=== PATIENT | female | born 1960 | race Caucasian/White ===

== ENCOUNTER 2016-05-11 23:13 | Inpatient (IN) | payer OTHER ==
[~2016-05-11] VITALS: Ht 144.8 cm; Wt 57.0 kg
[~2016-05-11 23:13] MED LIST: ATOR40TA68 PO; MTF1000T PO
[2016-05-11 23:20] VITALS: Ht 144.8 cm; Wt 57.0 kg
[2016-05-12] MEDS ORDERED: ACETAMINOPHEN 325 MG TAB PO STA (00:50)
[2016-05-12] MEDS ORDERED: SODIUM CHLORIDE 0.9% 1L BAG IV* STA (00:50)
--- NOTE | 2016-05-12 01:05 | ERD ---
ER Documentation Chief Complaint Date/Time DATE: 05/12/16 TIME: 01:04 Chief Complaint fever and body aches since 1700 today. took ibuprofen at 2100 HPI This is a 56-year-old female presents to the ER with a fever, chills, body aches that started today. Patient also has urinary frequency and dysuria. Patient denies any abdominal pain she denies any cough or cold symptoms. She denies any nausea vomiting or diarrhea. Patient denies any flank pain. Patient has a past medical history of diabetes. ROS 12 point review of systems was done, all negative except per HPI. Medications Home Meds Active Scripts Ondansetron Hcl* (Zofran*) 4 Mg Tablet, 4 MG PO Q6H for NAUSEA AND/OR VOMITING, #30 TAB Prov:CLYDE GUAJARDO 05/12/16 Acetaminophen* (Tylenol*) 500 Mg Tab, 1000 MG PO Q4H Y for PAIN AND OR ELEVATED TEMP for 5 Days, TAB Prov:CLYDE GUAJARDO 05/12/16 Ciprofloxacin Hcl* (Ciprofloxacin Hcl*) 500 Mg Tablet, 500 MG PO BID for 7 Days , TAB Prov:CLYDE GUAJARDO 05/12/16 Atorvastatin* (Atorvastatin*) 40 Mg Tablet, 40 MG PO HS, #30 TAB 3 Refills Prov:URBANO COX 06/23/14 Metformin* (Glucophage*) 1,000 Mg Tablet, 1000 MG PO DAILY, #30 TAB 3 Refills Prov:URBANO COX 06/23/14 Allergies Allergies: Coded Allergies: No Known Allergy (Unverified , 05/11/16) PMhx/Soc History of Surgery: Yes (c/section x2) Anesthesia Reaction: No Hx Respiratory Disorders: No Hx Cardiac Disorders: No Hx Psychiatric Problems: No Hx Miscellaneous Medical Probl: Yes (dm) Hx Alcohol Use: No Hx Substance Use: No Hx Tobacco Use: No Smoking Status: Never smoker Physical Exam Vitals Vital Signs Date Time Temp Pulse Resp B/P Pulse Ox O2 Delivery O2 Flow Rate FiO2 05/11/16 23:20 103.6 118 20 121/70 99 Physical Exam GENERAL: The patient is well developed and appropriate for usual state of health , in no apparent distress. HEENT: Atraumatic. Conjunctivae are pink. Pupils equal, round, and reactive to light. Extraocular muscles are grossly intact. Bilateral tympanic membranes are clear with no evidence of erythema, effusion or dulling of the light reflex. The oropharynx is clear with no erythema or exudates. CHEST: Clear to auscultation bilaterally. There are no rales, wheezes or rhonchi. HEART: Regular rate and rhythm. No murmurs, clicks, rubs or gallops. ABDOMEN: Soft, nontender and nondistended. Good bowel sounds. No rebound or guarding. No gross peritonitis. No gross organomegaly or masses. No Atkinson sign or McBurney point tenderness. BACK: No midline or flank tenderness. EXTREMITIES Grossly neurovascularly intact. NEURO: Alert and oriented. Result Diagram: 05/12/16 0110 05/12/16 0110 Results 24 hrs Laboratory Tests Test 05/12/16 01:10 05/12/16 03:10 Activated Partial Thromboplast Time 33.8Sec Alanine Aminotransferase (ALT/SGPT) 22IU/L Albumin 4.0g/dl Albumin/Globulin Ratio 1.00 Alkaline Phosphatase 106IU/L Anion Gap 17 Aspartate Amino Transf (AST/SGOT) 18IU/L Basophils # 0.010^3/ul Basophils % 0.1% Blood Urea Nitrogen 10mg/dl Calcium Level 9.0mg/dl Carbon Dioxide Level 24mmol/L Chloride Level 103mmol/L Creatinine 0.54mg/dl Direct Bilirubin 0.00mg/dl Eosinophils # 0.010^3/ul Eosinophils % 0.2% Globulin 4.00g/dl Glucose Level 174mg/dl Hematocrit 33.5% Hemoglobin 11.2g/dl INR International Normalized Ratio 1.02 Indirect Bilirubin 0.6mg/dl Lactic Acid Level 2.6mmol/L 1.2mmol/L Lymphocytes # 0.910^3/ul Lymphocytes % 8.9% Mean Corpuscular Hemoglobin 29.2pg Mean Corpuscular Hemoglobin Concent 33.4g/dl Mean Corpuscular Volume 87.3fl Mean Platelet Volume 9.9fl Monocytes # 0.510^3/ul Monocytes % 5.1% Neutrophils # 8.910^3/ul Neutrophils % 85.7% Nucleated Red Blood Cells # 0.010^3/ul Nucleated Red Blood Cells % 0.0/100WBC Platelet Count 47897^3/UL Potassium Level 3.6mmol/L Prothrombin Time 13.4Sec Prothrombin Time Ratio 1.0 Red Blood Count 3.8410^6/ul Red Cell Distribution Width 13.8% Sodium Level 140mmol/L Total Bilirubin 0.6mg/dl Total Protein 8.0g/dl Troponin I 0.031ng/ml Urine Bacteria FEW Urine Bilirubin NEGATIVE Urine Clarity SLIGHTLY CLOUDY Urine Color LT. YELLOW Urine Glucose NEGATIVE% Urine Hemoglobin 3+ Urine Ketones NEGATIVE Urine Leukocyte Esterase 3+ Urine Microscopic RBC 2-5/HPF Urine Microscopic WBC >50/HPF Urine Nitrite POSITIVE Urine Specific [place] 1.010 Urine Total Protein 1+ Urine Urobilinogen 1.0 E.U./dL Urine pH 6.0 White Blood Count 10.410^3/ul Current Medications Medications (Trade) Dose Ordered Sig/Sangeeta Route PRN Reason Start Time Stop Time Status Last Admin Dose Admin Sodium Chloride (NS) 1,770 ml BOLUS OVER 2 HOURS STAT IV* 05/12/16 00:50 05/12/16 00:55 DC 05/12/16 01:24 Acetaminophen (Tylenol Tab) 650 mg ONCE STAT PO 05/12/16 00:50 05/12/16 00:55 DC 05/12/16 01:24 Ciprofloxacin (Cipro) 500 mg ONCE ONCE PO 05/12/16 02:30 05/12/16 02:31 DC 05/12/16 02:10 Procedures/MDM I discussed this case with Dr. Zuniga. Patient more than likely has pyelonephritis. Lactic acid, and CMP is still pending. This patient will be followed by Anahi Mohan. Patient will be sent home with oral Cipro if the rest of the exams are normal and vitals stabilize. Departure Diagnosis: Primary Impression: Pyelonephritis Condition: Stable CLYDE GUAJARDO May 12, 2016 01:05
[2016-05-12 01:44] LABS: ADD UMIC YES; URINE BILIRUBIN (Dip) NEGATIVE (NEGATIVE); URINE BLOOD (Dip) 3+ (NEGATIVE); URINE COLOR LT. YELLOW (YELLOW); URINE GLUCOSE (Dip) NEGATIVE (NEGATIVE); URINE KETONES (Dip) NEGATIVE (NEGATIVE); URINE LEUKOCYTE ESTERASE (Dip) 3+ (NEGATIVE); URINE NITRITE (Dip) POSITIVE (NEGATIVE); URINE TOTAL PROTEIN (Dip) 1+ (NEGATIVE); URINE UROBILINOGEN (Dip) 1.0 E.U./dL (0.1-1.0)
[2016-05-12 01:45] LABS: BASOPHILS % 0.1 % (0.0-2.0); EOSINOPHILS % 0.2 % (0.0-7.0); HEMATOCRIT 33.5 % (37.0-47.0); HEMOGLOBIN 11.2 g/dl (12.0-16.0); LYMPHOCYTES # 0.9 10^3/ul (0.8-2.9); LYMPHOCYTES % 8.9 % (15.0-51.0); MEAN CORPUSCULAR HEMOGLOBIN 29.2 pg (29.0-33.0); MEAN CORPUSCULAR HGB CONC 33.4 g/dl (32.0-37.0); MEAN CORPUSCULAR VOLUME 87.3 fl (82.0-101.0); MEAN PLATELET VOLUME 9.9 fl (7.4-10.4); MONOCYTE # 0.5 10^3/ul (0.3-0.9); MONOCYTES % 5.1 % (0.0-11.0); NEUTROPHIL # 8.9 10^3/ul (1.6-7.5); NEUTROPHILS % 85.7 % (39.0-77.0); PLATELET COUNT 160 10^3/UL (140-440); RED BLOOD COUNT 3.84 10^6/ul (4.20-5.40); RED CELL DISTRIBUTION WIDTH 13.8 % (11.5-14.5); UNCORRECTED WBC 10.4 10^3/ul (4.8-10.8); WHITE BLOOD COUNT 10.4 10^3/ul (4.8-10.8)
[2016-05-12 01:54] LABS: CONDITION 1
[2016-05-12 01:58] LABS: INR 1.02; PARTIAL THROMBOPLASTIN TIME 33.8 Sec (25.0-35.0); PROTIME 13.4 Sec (12.2-14.2)
[2016-05-12] MEDS ORDERED: CIPR500T4 PO (02:02)
[2016-05-12 02:03] LABS: POTASSIUM 3.6 mmol/L (3.5-5.1)
[2016-05-12] MEDS ORDERED: TYL500 PO (02:03)
[2016-05-12] MEDS ORDERED: ONDA4TAB8 PO (02:03)
[2016-05-12 02:05] LABS: CREATININE 0.54 mg/dl (0.44-1.00)
[2016-05-12 02:06] LABS: BILIRUBIN,INDIRECT 0.6 mg/dl (0-1.1); BILIRUBIN,TOTAL 0.6 mg/dl (0.2-1.3)
[2016-05-12 02:17] LABS: BACTERIA,URINE FEW
[2016-05-12 02:18] LABS: TROPONIN-I 0.031 ng/ml (0.00-0.12)
[2016-05-12] MEDS ORDERED: CIPROFLOXACIN 500 MG TAB PO ONE (02:30)
--- NOTE | 2016-05-12 03:11 | RADRPT ---
PROCEDURE: Chest. CLINICAL INDICATION: Chest pain. TECHNIQUE: Single frontal view of the chest was obtained. COMPARISON: None. FINDINGS: The cardiac silhouette is within normal limits. The aortic arch is calcified. There is no focal co nsolidation, vascular congestion or pleural effusion. There is no pneumothorax. IMPRESSION: No evidence for active cardiopulmonary disease. Aortic atherosclerosis. .Farhad Jaime MD, Date Time Electronically viewed and signed by .Farhad Jaime MD, MD on 05/12/2016 03:10 .T/
--- NOTE | 2016-05-12 03:11 | QN ---
Documentation Comment Severe sepsis was diagnosed at 1:10 AM. Therefore the patient required admission for pyelonephritis. Initially the patient was given Cipro by mouth as we were planning to discharge the patient but after severe sepsis was diagnosed I added ceftriaxone 1 g IV. The patient was given the full 30 mL/kg fluid bolus. There is no sign of septic shock at this time. I spoke with Dr. Dietrich for admission as the patient has [employer] insurance. Patient will be admitted to a medical surgical bed. RUKHSANA BAER MD May 12, 2016 03:11
[2016-05-12 03:22] VITALS: PULSE 88; TEMP 97.7
[2016-05-12] MEDS ORDERED: ACETAMINOPHEN 325 MG TAB PO PRN (03:30)
[2016-05-12] MEDS ORDERED: CEFTRIAXONE 1 GM/50 ML (PMX) 50 ML IVPB ONE (03:30)
[2016-05-12] MEDS ORDERED: ONDANSETRON 4 MG INJ IV PRN ×2 (03:30→07:30)
[2016-05-12 04:33] VITALS: BP 111/55; RESP 20
[2016-05-12] MEDS ORDERED: HYDROCODONE/APAP (5/325) TAB PO PRN (07:30)
[2016-05-12] MEDS ORDERED: ACETAMINOPHEN 500 MG TAB PO PRN (08:00)
[2016-05-12 08:11] VITALS: BP 112/55; RESP 18
[2016-05-12] MEDS: SOD CHLORIDE 0.9% 1,000 ML IV SCH ×2 (08:45→16:52)
[2016-05-12] MEDS: DOCUSATE SODIUM 100 MG CAP PO SCH ×2 (08:46→20:29)
[2016-05-12] MEDS: FAMOTIDINE 20 MG TAB PO SCH (08:46)
[2016-05-12] MEDS: metFORMIN 500 MG TAB PO SCH (08:46)
[2016-05-12] MEDS: CEFTRIAXONE 1 GM/50 ML (PMX) 50 ML IVPB SCH (08:46)
[2016-05-12] MEDS ORDERED: GLUCAGON 1 MG INJ IM PRN (09:00)
[2016-05-12] MEDS ORDERED: GLUCOSE GEL 15 GRAM TUBE BUCCAL PRN (09:00)
[2016-05-12] MEDS ORDERED: DEXTROSE 50% 50 ML SYRINGE IV PRN ×2 (09:00)
[2016-05-12] MEDS ORDERED: GLUCOSE GEL 15 GRAM TUBE PO PRN ×2 (09:00)
--- NOTE | 2016-05-12 09:11 | HP ---
Date/Time of Note Date/Time of Note DATE: 05/12/16 TIME: 09:05 Assessment/Plan VTE Prophylaxis VTE Prophylaxis Intervention: SCD's Lines/Catheters [facility] Saline Lock Urinary Cath still in place: No Assessment/Plan Assessment/Plan 56 yo F with 1. Sepsis with lactic acidosis 2/2#2 2. Acute Cystitis 3. DM2: controlled PLAN: admit med surg / bood and urine cxs/ empiric abx pain control/ antiemetics/ antipyretics/ supportive care Diabetic diet / SSI / resume home regimen if appropriate and tailor therapy while in-house. Discharge goals: when culture results availabale and patient 24hr fever free. Plan of care has been discussed with patient, questions answered and patient has verbalized understanding. Prophylaxis: SCds / pepcid. HPI/ROS Admit Date/Time Admit Date/Time May 12, 2016 at 03:10 Hx of Present Illness PRESENTING COMPLAINT: fever HISTORY OF PRESENTING COMPLAINT:This is a 56-year-old female presents to the ER with a fever, chills, body aches that started today. Patient also has urinary frequency and dysuria. Patient denies any abdominal pain she denies any cough or cold symptoms. She denies any nausea vomiting or diarrhea. Patient denies any flank pain. Patient has a past medical history of diabetes. ROS Constitutional: febrile, poor po, No nausea Eyes: no complaints ENT: no complaints Respiratory: no complaints Cardiovascular: no complaints Gastrointestinal: decreased appetite, nausea, passing stool, No vomiting Genitourinary: dysuria, No flank pain, No hematuria PMH/Family/Social Past Medical History Medical History: diabetes, high cholesterol Past Surgical History * C/s X2 Family History Significant Family History: diabetes Social History Alcohol Use: none Smoking Status: Never smoker Drug Use: none Exam/Review of Systems Vital Signs Vitals Vital Signs Date Time Temp Pulse Resp B/P Pulse Ox O2 Delivery O2 Flow Rate FiO2 05/12/16 08:11 97.9 82 18 112/55 98 05/12/16 03:22 Room Air Exam Constitutional: alert, oriented Psych: anxiety Head: atraumatic, normocephalic Eyes: PERRL Neck: non-tender Respiratory: clear to auscultation, normal air movement Cardiovascular: regular rate and rhythm, No murmurs/extra sounds Gastrointestinal: bowel sounds, non-tender, soft Musculoskeletal: nl extremities to inspection Neurological: lethargic, nl mental status, nl speech Labs Result Diagram: 05/12/16 0110 05/12/16 0110 Medications Medications Current Medications Ceftriaxone Sodium 50 ml @ 100 mls/hr Q24H IVPB Last administered on 05/12/16 08:46; Admin Dose 100 MLS/HR; Start 05/12/16 at 07:30 Sodium Chloride (NS) 1,000 ml @ 125 mls/hr Q8H IV Last administered on 08:45; Admin Dose 125 MLS/HR; Start 05/12/16 at 07:30 Ondansetron HCl (Zofran Inj) 4 mg Q6H PRN IV NAUSEA AND/OR VOMITING; Start 05/12 at 07:30 Acetaminophen/ Hydrocodone Bitart ([place] (5/325)) 1 tab Q6H PRN PO pain; Start 05/12/16 at 07:30 Docusate Sodium (Colace) 100 mg BID PO Last administered on 05/12/16 08:46; Admin Dose 100 MG; Start 05/12/16 at 09:00 Famotidine (Pepcid) 20 mg DAILY PO Last administered on 05/12/16 08:46; Admin Dose 20 MG; Start 05/12/16 at 09:00 Diagnostic Test (Pha) (Accucheck) 1 ea 02 XX ; Start 05/13/16 at 02:00 Acetaminophen (Tylenol Tab) 650 mg Q6H PRN PO PAIN AND OR ELEVATED TEMP; Start 05/12/16 at 08:00 Atorvastatin Calcium (Lipitor) 40 mg HS PO ; Start 05/12/16 at 21:00 Miscellaneous Information 1 ea NOTE XX ; Start 05/12/16 at 09:00 Glucose (Glutose) 15 gm Q15M PRN PO DECREASED GLUCOSE; Start 05/12/16 at 09:00 Glucose (Glutose) 22.5 gm Q15M PRN PO DECREASED GLUCOSE; Start 05/12/16 at 09:00 Dextrose (D50w Syringe) 25 ml Q15M PRN IV DECREASED GLUCOSE; Start 05/12/16 at 09:00 Dextrose (D50w Syringe) 50 ml Q15M PRN IV DECREASED GLUCOSE; Start 05/12/16 at 09:00 Glucagon (Glucagen) 1 mg Q15M PRN IM DECREASED GLUCOSE; Start 05/12/16 at 09:00 Glucose (Glutose) 15 gm Q15M PRN BUCCAL DECREASED GLUCOSE; Start 05/12/16 at 09: 00 Procedures Procedures Laboratory Tests Test 05/12/16 01:10 05/12/16 03:10 05/12/16 05:40 05/12/16 07:46 Activated Partial Thromboplast Time 33.8Sec Alanine Aminotransferase (ALT/SGPT) 22IU/L Albumin 4.0g/dl Albumin/Globulin Ratio 1.00 Alkaline Phosphatase 106IU/L Anion Gap 17 Aspartate Amino Transf (AST/SGOT) 18IU/L Basophils # 0.010^3/ul Basophils % 0.1% Blood Urea Nitrogen 10mg/dl Calcium Level 9.0mg/dl Carbon Dioxide Level 24mmol/L Chloride Level 103mmol/L Creatinine 0.54mg/dl Direct Bilirubin 0.00mg/dl Eosinophils # 0.010^3/ul Eosinophils % 0.2% Globulin 4.00g/dl Glucose Level 174mg/dl Hematocrit 33.5% Hemoglobin 11.2g/dl INR International Normalized Ratio 1.02 Indirect Bilirubin 0.6mg/dl Lactic Acid Level 2.6mmol/L 1.2mmol/L 1.2mmol/L Lymphocytes # 0.910^3/ul Lymphocytes % 8.9% Mean Corpuscular Hemoglobin 29.2pg Mean Corpuscular Hemoglobin Concent 33.4g/dl Mean Corpuscular Volume 87.3fl Mean Platelet Volume 9.9fl Monocytes # 0.510^3/ul Monocytes % 5.1% Neutrophils # 8.910^3/ul Neutrophils % 85.7% Nucleated Red Blood Cells # 0.010^3/ul Nucleated Red Blood Cells % 0.0/100WBC Platelet Count 27476^3/UL Potassium Level 3.6mmol/L Prothrombin Time 13.4Sec Prothrombin Time Ratio 1.0 Red Blood Count 3.8410^6/ul Red Cell Distribution Width 13.8% Sodium Level 140mmol/L Total Bilirubin 0.6mg/dl Total Protein 8.0g/dl Troponin I 0.031ng/ml Urine Bacteria FEW Urine Bilirubin NEGATIVE Urine Clarity SLIGHTLY CLOUDY Urine Color LT. YELLOW Urine Glucose NEGATIVE% Urine Hemoglobin 3+ Urine Ketones NEGATIVE Urine Leukocyte Esterase 3+ Urine Microscopic RBC 2-5/HPF Urine Microscopic WBC >50/HPF Urine Nitrite POSITIVE Urine Specific [place] 1.010 Urine Total Protein 1+ Urine Urobilinogen 1.0 E.U./dL Urine pH 6.0 White Blood Count 10.410^3/ul Bedside Glucose 158mg/dL PROCEDURE: Chest. CLINICAL INDICATION: Chest pain. TECHNIQUE: Single frontal view of the chest was obtained. COMPARISON: None. FINDINGS: The cardiac silhouette is within normal limits. The aortic arch is calcified. There is no focal consolidation, vascular congestion or pleural effusion. There is no pneumothorax. IMPRESSION: No evidence for active cardiopulmonary disease. Aortic atherosclerosis. .Farhad Jaime MD, Date Time Electronically viewed and signed by .Farhad Jaime MD, on 05/12/2016 03:10 DENNIS BUSTOS May 12, 2016 09:11
[2016-05-12] MEDS: INSULIN ASPART [NOVOLOG] 3 ML PEN SC SCH ×4 (09:41→21:00)
[2016-05-12 20:18] VITALS: BP 115/57; RESP 20
[2016-05-12] MEDS: ATORVASTATIN 40 MG TAB PO SCH (20:29)
--- NOTE | 2016-05-12 23:18 | PN ---
Date/Time of Note Date/Time of Note DATE: 05/12/16 TIME: 23:18 Assessment/Plan VTE Prophylaxis VTE Prophylaxis Intervention: SCD's Lines/Catheters IV Catheter Type (from Nrs): Saline Lock Urinary Cath still in place: No Assessment/Plan Assessment/Plan 1. Sepsis with lactic acidosis 2/2#2 2. Acute Cystitis 3. DM2: controlled PLAN: f/u bood and urine cxs cont empiric abx pain control/ antiemetics/ antipyretics/ supportive care Diabetic diet / SSI / resume home regimen if appropriate and tailor therapy while in-house. Discharge goals: when culture results availabale and patient 24hr fever free. Subjective 24 Hr Interval Summary Free Text/Dictation no acute events Exam/Review of Systems Vital Signs Vitals Vital Signs Date Time Temp Pulse Resp B/P Pulse Ox O2 Delivery O2 Flow Rate FiO2 05/12/16 20:18 98.4 86 20 115/57 98 05/12/16 03:22 Room Air Exam Constitutional: alert, oriented Psych: anxiety Head: atraumatic, normocephalic Eyes: PERRL Neck: non-tender Respiratory: clear to auscultation, normal air movement Cardiovascular: regular rate and rhythm, No murmurs/extra sounds Gastrointestinal: bowel sounds, non-tender, soft Musculoskeletal: nl extremities to inspection Neurological: lethargic, nl mental status, nl speech Results Result Diagram: 05/12/16 0110 05/12/16 0110 Results 24 hrs Laboratory Tests Test 05/12/16 01:10 05/12/16 03:10 05/12/16 05:40 05/12/16 07:46 Activated Partial Thromboplast Time 33.8 Alanine Aminotransferase (ALT/SGPT) 22 Albumin 4.0 Albumin/Globulin Ratio 1.00 Alkaline Phosphatase 106 Anion Gap 17 H Aspartate Amino Transf (AST/SGOT) 18 Basophils # 0.0 Basophils % 0.1 Blood Urea Nitrogen 10 Calcium Level 9.0 Carbon Dioxide Level 24 Chloride Level 103 Creatinine 0.54 Direct Bilirubin 0.00 Eosinophils # 0.0 Eosinophils % 0.2 Globulin 4.00 H Glucose Level 174 Hematocrit 33.5 L Hemoglobin 11.2 L INR International Normalized Ratio 1.02 Indirect Bilirubin 0.6 Lactic Acid Level 2.6 H 1.2 1.2 Lymphocytes # 0.9 Lymphocytes % 8.9 L Mean Corpuscular Hemoglobin 29.2 # Mean Corpuscular Hemoglobin Concent 33.4 Mean Corpuscular Volume 87.3 # Mean Platelet Volume 9.9 Monocytes # 0.5 Monocytes % 5.1 Neutrophils # 8.9 H Neutrophils % 85.7 H Nucleated Red Blood Cells # 0.0 Nucleated Red Blood Cells % 0.0 Platelet Count 160 # Potassium Level 3.6 Prothrombin Time 13.4 Prothrombin Time Ratio 1.0 Red Blood Count 3.84 L Red Cell Distribution Width 13.8 # Sodium Level 140 Total Bilirubin 0.6 Total Protein 8.0 Troponin I 0.031 Urine Bacteria FEW Urine Bilirubin NEGATIVE Urine Clarity SLIGHTLY CLOUDY Urine Color LT. YELLOW Urine Glucose NEGATIVE Urine Hemoglobin 3+ H Urine Ketones NEGATIVE Urine Leukocyte Esterase 3+ H Urine Microscopic RBC 2-5 Urine Microscopic WBC >50 Urine Nitrite POSITIVE H Urine Specific [place] 1.010 Urine Total Protein 1+ H Urine Urobilinogen 1.0 E.U./dL Urine pH 6.0 White Blood Count 10.4 # Bedside Glucose 158 Test 05/12/16 11:23 05/12/16 16:26 05/12/16 21:21 Bedside Glucose 112 102 142 Medications Medications Current Medications Ceftriaxone Sodium 50 ml @ 100 mls/hr Q24H IVPB Last administered on 05/12/16 08:46; Admin Dose 100 MLS/HR; Start 05/12/16 at 07:30 Sodium Chloride (NS) 1,000 ml @ 125 mls/hr Q8H IV Last administered on 16:52; Admin Dose 125 MLS/HR; Start 05/12/16 at 07:30 Ondansetron HCl (Zofran Inj) 4 mg Q6H PRN IV NAUSEA AND/OR VOMITING; Start 05/12 at 07:30 Acetaminophen/ Hydrocodone Bitart ([place] (5/325)) 1 tab Q6H PRN PO pain; Start 05/12/16 at 07:30 Docusate Sodium (Colace) 100 mg BID PO Last administered on 05/12/16 20:29; Admin Dose 100 MG; Start 05/12/16 at 09:00 Famotidine (Pepcid) 20 mg DAILY PO Last administered on 05/12/16 08:46; Admin Dose 20 MG; Start 05/12/16 at 09:00 Diagnostic Test (Pha) (Accucheck) 1 ea 02 XX ; Start 05/13/16 at 02:00 Acetaminophen (Tylenol Tab) 650 mg Q6H PRN PO PAIN AND OR ELEVATED TEMP; Start 05/12/16 at 08:00 Atorvastatin Calcium (Lipitor) 40 mg HS PO Last administered on 05/12/16t 20:29 ; Admin Dose 40 MG; Start 05/12/16 at 21:00 Miscellaneous Information 1 ea NOTE XX ; Start 05/12/16 at 09:00 Glucose (Glutose) 15 gm Q15M PRN PO DECREASED GLUCOSE; Start 05/12/16 at 09:00 Glucose (Glutose) 22.5 gm Q15M PRN PO DECREASED GLUCOSE; Start 05/12/16 at 09:00 Dextrose (D50w Syringe) 25 ml Q15M PRN IV DECREASED GLUCOSE; Start 05/12/16 at 09:00 Dextrose (D50w Syringe) 50 ml Q15M PRN IV DECREASED GLUCOSE; Start 05/12/16 at 09:00 Glucagon (Glucagen) 1 mg Q15M PRN IM DECREASED GLUCOSE; Start 05/12/16 at 09:00 Glucose (Glutose) 15 gm Q15M PRN BUCCAL DECREASED GLUCOSE; Start 05/12/16 at 09: 00 LUCINDA PATEL MD May 12, 2016 23:18
[2016-05-13] MEDS: ACCUCHECK XX SCH (02:00)
[2016-05-13] MEDS: SOD CHLORIDE 0.9% 1,000 ML IV SCH ×3 (04:23→15:35)
[2016-05-13 06:06] LABS: BASOPHILS % 0.3 % (0.0-2.0); EOSINOPHILS % 0.3 % (0.0-7.0); HEMATOCRIT 30.2 % (37.0-47.0); HEMOGLOBIN 10.2 g/dl (12.0-16.0); LYMPHOCYTES # 1.5 10^3/ul (0.8-2.9); MEAN CORPUSCULAR HEMOGLOBIN 29.7 pg (29.0-33.0); MEAN CORPUSCULAR HGB CONC 33.8 g/dl (32.0-37.0); MEAN CORPUSCULAR VOLUME 87.9 fl (82.0-101.0); MEAN PLATELET VOLUME 10.2 fl (7.4-10.4); MONOCYTE # 0.9 10^3/ul (0.3-0.9); MONOCYTES % 10.2 % (0.0-11.0); NEUTROPHIL # 6.7 10^3/ul (1.6-7.5); NEUTROPHILS % 73.2 % (39.0-77.0); PLATELET COUNT 155 10^3/UL (140-440); RED BLOOD COUNT 3.44 10^6/ul (4.20-5.40); RED CELL DISTRIBUTION WIDTH 14.1 % (11.5-14.5); UNCORRECTED WBC 9.1 10^3/ul (4.8-10.8); WHITE BLOOD COUNT 9.1 10^3/ul (4.8-10.8)
[2016-05-13 06:07] LABS: CONDITION 1
[2016-05-13 06:45] LABS: POTASSIUM 3.4 mmol/L (3.5-5.1)
[2016-05-13 06:47] LABS: CREATININE 0.44 mg/dl (0.44-1.00)
[2016-05-13 06:48] LABS: CALCIUM 8.4 mg/dl (8.4-10.2); MAGNESIUM 1.7 mg/dl (1.7-2.5)
[2016-05-13 07:36] VITALS: BP 123/59; RESP 16; RESP 82
[2016-05-13] MEDS: INSULIN ASPART [NOVOLOG] 3 ML PEN SC SCH ×4 (07:53→20:15)
[2016-05-13] MEDS: CEFTRIAXONE 1 GM/50 ML (PMX) 50 ML IVPB SCH (07:57)
[2016-05-13] MEDS: metFORMIN 500 MG TAB PO SCH (07:57)
[2016-05-13] MEDS: FAMOTIDINE 20 MG TAB PO SCH (08:53)
[2016-05-13] MEDS: DOCUSATE SODIUM 100 MG CAP PO SCH ×2 (08:53→20:15)
[2016-05-13] MEDS ORDERED: POTASSIUM CHLORIDE (SR) 20 MEQ TAB PO STA (17:20)
--- NOTE | 2016-05-13 17:24 | PN ---
Date/Time of Note Date/Time of Note DATE: 05/13/16 TIME: 17:21 Assessment/Plan VTE Prophylaxis VTE Prophylaxis Intervention: SCD's Lines/Catheters IV Catheter Type (from Nrs): Peripheral IV Urinary Cath still in place: No Assessment/Plan Assessment/Plan 1. Sepsis with lactic acidosis 2/2 GNR UTI 2. UTI, with cx positive for GNR 3. DM2: controlled 4. Mild Hypokalemia PLAN: f/u bood and urine cxs cont empiric abx pain control/ antiemetics/ antipyretics/ supportive care Diabetic diet / SSI / resume home regimen if appropriate and tailor therapy while in-house. DISP: pending speciation and sensitivity of GNR in urine Subjective 24 Hr Interval Summary Free Text/Dictation no acute issues overnight Exam/Review of Systems Vital Signs Vitals Vital Signs Date Time Temp Pulse Resp B/P Pulse Ox O2 Delivery O2 Flow Rate FiO2 05/13/16 07:36 98.4 82 16 123/59 98 05/12/16 03:22 Room Air Intake and Output 05/12/16 05/12/16 05/13/16 15:00 23:00 07:00 Intake Total 50 ml 2477.5 ml 1292.5 ml Output Total 1500 ml 1100 ml Balance 50 ml 977.5 ml 192.5 ml Exam Constitutional: alert, oriented Psych: anxiety Head: atraumatic, normocephalic Eyes: PERRL Neck: non-tender Respiratory: clear to auscultation, normal air movement Cardiovascular: regular rate and rhythm, No murmurs/extra sounds Gastrointestinal: bowel sounds, non-tender, soft Musculoskeletal: nl extremities to inspection Neurological: lethargic, nl mental status, nl speech Results Result Diagram: 05/13/16 0515 05/13/16 0515 Results 24 hrs Laboratory Tests Test 05/12/16 21:21 05/13/16 05:15 05/13/16 07:48 05/13/16 11:40 Bedside Glucose 142 116 133 Anion Gap 14 Basophils # 0.0 Basophils % 0.3 Blood Urea Nitrogen 5 L Calcium Level 8.4 Carbon Dioxide Level 24 Chloride Level 105 Creatinine 0.44 Eosinophils # 0.0 Eosinophils % 0.3 Glucose Level 140 Hematocrit 30.2 L Hemoglobin 10.2 L Lymphocytes # 1.5 Lymphocytes % 16.0 Magnesium Level 1.7 Mean Corpuscular Hemoglobin 29.7 Mean Corpuscular Hemoglobin Concent 33.8 Mean Corpuscular Volume 87.9 Mean Platelet Volume 10.2 Monocytes # 0.9 Monocytes % 10.2 Neutrophils # 6.7 Neutrophils % 73.2 Nucleated Red Blood Cells # 0.0 Nucleated Red Blood Cells % 0.0 Platelet Count 155 Potassium Level 3.4 L Red Blood Count 3.44 L Red Cell Distribution Width 14.1 Sodium Level 140 White Blood Count 9.1 Medications Medications Current Medications Ceftriaxone Sodium 50 ml @ 100 mls/hr Q24H IVPB Last administered on 05/13/16 07:57; Admin Dose 100 MLS/HR; Start 05/12/16 at 07:30 Sodium Chloride (NS) 1,000 ml @ 125 mls/hr Q8H IV Last administered on 15:35; Admin Dose 125 MLS/HR; Start 05/12/16 at 07:30 Ondansetron HCl (Zofran Inj) 4 mg Q6H PRN IV NAUSEA AND/OR VOMITING; Start 05/12 at 07:30 Acetaminophen/ Hydrocodone Bitart ([place] (5/325)) 1 tab Q6H PRN PO pain; Start 05/12/16 at 07:30 Docusate Sodium (Colace) 100 mg BID PO Last administered on 05/13/16 08:53; Admin Dose 100 MG; Start 05/12/16 at 09:00 Famotidine (Pepcid) 20 mg DAILY PO Last administered on 05/13/16 08:53; Admin Dose 20 MG; Start 05/12/16 at 09:00 Diagnostic Test (Pha) (Accucheck) 1 ea 02 XX ; Start 05/13/16 at 02:00 Acetaminophen (Tylenol Tab) 650 mg Q6H PRN PO PAIN AND OR ELEVATED TEMP Last administered on 05/13/16 02:32; Admin Dose 650 MG; Start 05/12/16 at 08:00 Atorvastatin Calcium (Lipitor) 40 mg HS PO Last administered on 05/12/16 20:29 ; Admin Dose 40 MG; Start 05/12/16 at 21:00 Miscellaneous Information 1 ea NOTE XX ; Start 05/12/16 at 09:00 Glucose (Glutose) 15 gm Q15M PRN PO DECREASED GLUCOSE; Start 05/12/16 at 09:00 Glucose (Glutose) 22.5 gm Q15M PRN PO DECREASED GLUCOSE; Start 05/12/16 at 09:00 Dextrose (D50w Syringe) 25 ml Q15M PRN IV DECREASED GLUCOSE; Start 05/12/16 at 09:00 Dextrose (D50w Syringe) 50 ml Q15M PRN IV DECREASED GLUCOSE; Start 05/12/16 at 09:00 Glucagon (Glucagen) 1 mg Q15M PRN IM DECREASED GLUCOSE; Start 05/12/16 at 09:00 Glucose (Glutose) 15 gm Q15M PRN BUCCAL DECREASED GLUCOSE; Start 05/12/16 at 09: 00 LUCINDA PATEL MD May 13, 2016 17:24
[2016-05-13] MEDS: ATORVASTATIN 40 MG TAB PO SCH (20:15)
[2016-05-13 20:53] VITALS: BP 124/58; RESP 18
[2016-05-14] MEDS: SOD CHLORIDE 0.9% 1,000 ML IV SCH ×4 (00:01→15:30)
[2016-05-14] MEDS: ACCUCHECK XX SCH (02:00)
[2016-05-14 05:46] LABS: POTASSIUM 4.1 mmol/L (3.5-5.1)
[2016-05-14 05:48] LABS: BASOPHILS % 0.4 % (0.0-2.0); CREATININE 0.45 mg/dl (0.44-1.00); EOSINOPHILS # 0.1 10^3/ul (0.0-0.5); HEMATOCRIT 30.2 % (37.0-47.0); LYMPHOCYTES # 1.6 10^3/ul (0.8-2.9); LYMPHOCYTES % 20.2 % (15.0-51.0); MEAN CORPUSCULAR HEMOGLOBIN 29.5 pg (29.0-33.0); MEAN CORPUSCULAR HGB CONC 33.3 g/dl (32.0-37.0); MEAN CORPUSCULAR VOLUME 88.7 fl (82.0-101.0); MEAN PLATELET VOLUME 9.9 fl (7.4-10.4); MONOCYTES % 12.3 % (0.0-11.0); NEUTROPHIL # 5.1 10^3/ul (1.6-7.5); NEUTROPHILS % 66.1 % (39.0-77.0); PLATELET COUNT 151 10^3/UL (140-440); RED CELL DISTRIBUTION WIDTH 14.1 % (11.5-14.5); UNCORRECTED WBC 7.8 10^3/ul (4.8-10.8); WHITE BLOOD COUNT 7.8 10^3/ul (4.8-10.8)
[2016-05-14 05:49] LABS: CALCIUM 8.6 mg/dl (8.4-10.2)
[2016-05-14 06:19] LABS: CONDITION 1
[2016-05-14] MEDS: CEFTRIAXONE 1 GM/50 ML (PMX) 50 ML IVPB SCH (07:54)
[2016-05-14] MEDS: metFORMIN 500 MG TAB PO SCH (07:55)
[2016-05-14] MEDS: INSULIN ASPART [NOVOLOG] 3 ML PEN SC SCH ×3 (08:00→17:07)
[2016-05-14 08:06] VITALS: BP 146/86; RESP 18
[2016-05-14] MEDS: DOCUSATE SODIUM 100 MG CAP PO SCH (08:28)
[2016-05-14] MEDS: FAMOTIDINE 20 MG TAB PO SCH (08:28)
--- NOTE | 2016-05-14 15:26 | PDOCDIS ---
Discharge Instructions CONDITION Patient Condition: Stable HOME CARE INSTRUCTIONS: Special Diet: Diabetes ACTIVITY: Activity Restrictions: No Restrictions FOLLOW UP/APPOINTMENTS Appointments follow-up with primary care Doctor OTHER ORDERS: Other Orders: Call 911 or go to the nearest ER if you develop fever, chills, difficulty urination, chest pain, shortness of breath LUCINDA PATEL MD May 14, 2016 15:26
--- NOTE | 2016-05-14 15:44 | DS ---
DATE OF ADMISSION: 05/12/2016 DATE OF DISCHARGE: 05/14/2016 DISCHARGE DIAGNOSES: 1. Sepsis with lactic acidosis secondary to Escherichia coli urinary tract infection. 2. Escherichia coli urinary tract infection. 3. History of type 2 diabetes. HOSPITAL COURSE: The patient is a 56-year-old female with a history of diabetes who presented with fever, chills and body aches. On workup, shows that she has a UTI. Her chest x-ray was negative fo r any acute cardiopulmonary disease. Patient was admitted and started on antibiotics. Urine cultur e comes back positive for E. coli. During hospitalization, she remained stable and today, the patie nt is feeling really well. She is hemodynamically stable and pain free and as such, she will be dis charged in stable condition to continue her antibiotics. CONDITION ON DISCHARGE: Stable. MEDICATIONS UPON DISCHARGE: 1. Tylenol. 2. Lipitor. 3. Ciprofloxacin. 4. Metformin. 5. Zofran. FOLLOWUP INSTRUCTIONS: The patient is to follow up with her primary care doctor, and she needs to g o to the nearest emergency department or call 911 if she develops any fever, chills, urinary symptom s, nausea, vomiting, chest pain or shortness of breath. Total time spent with this discharge summary is about 35 minutes. Dictated By: LUCINDA CHATMAN/RASHIDA Conf#: [id number] DID#: [id number]
== END 2016-05-14 18:34 | disposition home or self-care (01) | DRG 872 ==
LOC: FTE 23:13 → PP2 05-12 03:10
PROVIDERS: ADMIT Family Medicine; ATTEND Family Medicine
DX: A41.9 Sepsis, unspecified organism (principal); E87.2 Acidosis; N39.0 Urinary tract infection, site not specified; B96.29 Other Escherichia coli [E. coli] as the cause of diseases classified elsewhere; E11.65 Type 2 diabetes mellitus with hyperglycemia; Z79.84 Long term (current) use of oral hypoglycemic drugs; E87.6 Hypokalemia
CPT/HCPCS: 36415; 71010; 80048; 80053; 81001; 81003; 82962; 83605; 83735; 84484; 85025; 85610; 85730; 87040; 87086; 93005; 96374; J0696; J1815; J7030